=== PATIENT | male | born 1960 | race Asian ===

== ENCOUNTER 2023-03-05 12:11 | Outpatient (AMB) | payer OTHER, SELFPAY ==
[2023-03-05 12:33] VITALS: BP 126/80; PULSE 63; O2SAT 96; BMI 25.9
--- NOTE | 2023-03-05 12:33 | A.OFFPC_ITS ---
Vital Signs 03/05/23 12:33 Height 6 ft 1 in Weight 196 lb 6 oz BMI 25.9 BP 126/80 Blood Pressure Location Lt brachial Position Sitting Pulse 63 Pulse Source Pulse Oximeter Pulse Oximetry (%) 96 Oxygen Delivery Method Room Air Intake Visit Reasons: Annual Exam Manager Security Required: No Accompanied by: Self / Same As Patient Allergies Helene Allergy (Unknown, Uncoded 03/05/23 12:42) Itchy Eyes Medication List - Last Reconciled 03/05/23 by Jim Sweet MD albuterol sulfate 90 mcg/actuation (ProAir HFA) 2 puffs inhalation Q6H PRN 30 days cholecalciferol (vitamin D3) 50 mcg PO DAILY 90 days fluticasone propionate 50 mcg/actuation 2 sprays intranasal DAILY PRN 90 days triamcinolone acetonide 0.1% 1 appl topical BID PRN 30 days Tobacco use date assessed: 03/05/23 Dental Screening Dental Screen Date: 03/05/23 Did you have a dental visit in the last 12 months?: Yes Did you have a dental problem in the last 6 months where you did not have access to dental care?: No Was dental information given to patient?: Patient has dentist HPI Annual Exam HPI Details Patient comes in today for his annual physical examination States that he feels okay He denies any headaches or dizziness States that his recent symptoms of dysphagia and dyspnea have resolved - would like to know if his recent chest x-rays and upper GI series showed anything of importance Denies any chest pains No nausea/vomiting, no abdominal pain No change in bowel habits noted Denies any acute urinary symptoms States that he has been experiencing some recurrent right-sided low back pain lately although his symptoms have subsided a few days ago States that his sister advised him that she had similar symptoms recently and was prescribed some Baclofen, which helped her a lot He is wondering if he can get Rx for some Baclofen as well to take when his symptoms flare up again Adds that he is still breaking out in itchy rash/lesions on his lower legs and states that his current steroid cream helps but the rash keeps recurring often and is wondering if there is any Rx that would be more effective than the one he is currently on He had his screening colonoscopy done back on 05/07/[address] Forbes over at [facility] [place] - (+) tubular adenoma and was recommended to undergo repeat colonoscopy in 5 years States that he did have his repeat colonoscopy done back in May 2022 and was advised repeat again in 5 years As we have not received any report regarding his most recent colonoscopy, will try to obtain this from [facility] [place] [facility] for review Needs a few of his Rx refilled PFSH Medical History (Updated 03/05/23 @ 13:31 by Jim Sweet MD) Right rotator cuff tendinitis Reactive airway disease Dermatitis Pure hypercholesterolemia Vitamin D deficiency Hyperlipidemia Allergic rhinitis Surgical History (Updated 03/05/23 @ 13:24 by Jim Sweet MD) Hx of colonoscopy Family History Mother Arthritis Father No problems noted. Social History Housing: House Alcohol intake: current Alcohol intake frequency: holidays/special occasions only Alcohol type: beer and wine Patient Tobacco Use Status: Former Tobacco user e-Cigarette/Vaping Use: Never Used Second Hand Smoke Exposure: Yes service: No Current occupational status: employed Cognitive needs: No Hearing needs: No Vision needs: Yes Questionnaire PHQ-9 Over the last 2 weeks, how often have you been bothered by any of the following problems? 1. Little interest or pleasure in doing things: not at all 2. Feeling down, depressed, or hopeless: not at all 3. Trouble falling or staying asleep, or sleeping too much: not at all 4. Feeling tired or having little energy: not at all 5. Poor appetite or overeating: not at all 6. Feeling bad about yourself - or that you are a failure or have let yourself or your family down: not at all 7. Trouble concentrating on things, such as reading the newspaper or watching television: not at all 8. Moving or speaking so slowly that other people could have noticed. Or the opposite - being so fidgety or restless that you have been moving around a lot more than usual: not at all 9. Thoughts that you would be better off or of hurting yourself in some way: not at all Total score: 0 Depression Screening Interpretation: Negative Depression Screening Done: Yes 85167 - PHQ-9 Billing: Yes Source: Developed by Drs. Rubens Cain, Fariha Chávez, Rigoberto Lucia and colleagues, with an educational susanna from [employer]. Thrive Questionnaire Date Thrive assessed: 03/05/23 I am a: Patient What is your living situation today?: I have a steady place to live Within the past 12 months, did the food you bought not last and you didn't have the money to get more?: Never true Within the past 12 months, did you worry whether your food would run out before you got money to buy more?: Never true Do you have trouble paying for medicines?: No Do you have trouble getting transportation to medical appointments?: No Do you have trouble paying your heating and electricity bill?: No Do you have trouble taking care of your child, family member or friend?: No Do you have trouble with day-to-day activities such as bathing, preparing meals, shopping, managing finances, etc.?: No Are you currently unemployed and looking for a job?: No Are you interested in more education?: No Please select the resources that you would like help with: None Currently or been in a relationship where the following occur: no concerns reported AUDIT C Alcohol Use Questionnaire (AUDIT-C) 1. How often do you have a drink containing alcohol?: Monthly or less 2. How many drinks containing alcohol do you have on a typical day when you are drinking?: 1 or 2 3. How often do you have six or more drinks on one occasion?: Never Total Score: 1 Score Reviewed/Action Taken: Yes MILVIA-7 AMB Questionnaire MILVIA-7 Date MILVIA - 7 assessed: 03/05/23 Feeling nervous, anxious, or on edge: 0 = Not at all Not being able to stop or control worryin = Not at all Worrying too much about different things: 0 = Not at all Trouble relaxin = Not at all Being so restless that it is hard to sit still: 0 = Not at all Becoming easily annoyed or irritable: 0 = Not at all Feeling afraid as if something awful might happen: 0 = Not at all Total MILVIA-7 score (0-4 normal; 5-9 mild; 10-14 moderate; 15-21 severe): 0 Source: Developed by Fariha Jo, Rigoberto Lucia and colleagues, with an educational susanna from [employer]. Review of Systems Const Denies chills, Denies fatigue, Denies fever(s), Denies headache(s), Denies malaise and Denies weakness Eyes Denies blurry vision, Denies change in vision, Denies irritation and Denies itchy eyes ENT Denies dysphagia, Denies dizziness, Denies otalgia, Denies headache(s), Denies nasal congestion, Denies neck pain, Denies odynophagia and Denies sore throat Card Denies chest pain, Denies rapid heart rate, Denies irregular heart rhythm, Denies palpitations and Denies dyspnea (recent symptoms have resolved) Resp Denies chest congestion, Denies cough, Denies dyspnea (recent symptoms have re solved) and Denies wheezing GI Denies abdominal pain, Denies bloating, Denies constipation, Denies dysphagia, Reports heartburn (occasional - symptoms have resolved recently), Denies diarrhea, Denies nausea, Denies odynophagia and Denies vomiting Denies hematuria, Denies difficulty urinating, Denies dysuria, Denies nocturia, Denies urinary frequency and Denies urinary urgency Musc Reports back pain (on and off recently, over the right side), Denies arthralgias, Denies joint swelling, Denies muscle weakness and Denies neck pain Skin/Breast Denies change in pigmentation, Reports dry skin (especially over both lower legs), Denies lesions, Reports rash (recurrent itchy rash on both lower legs) and Denies unusual bruising Neuro Denies dizziness, Denies headache(s), Denies paresthesias and Denies weakness Endo Denies fatigue and Denies palpitations Aller/Immun Denies itchy eyes and Denies wheezing Physical exam (Primary Care) Vital Signs: Last Vital Signs Pulse 63 03/05/23 12:33 BP 126/80 03/05/23 12:33 Pulse Ox 96 03/05/23 12:33 Oxygen Delivery Method Room Air 03/05/23 12:33 BMI result Body Mass Index 25.9 Tobacco/Smoking Status: Tobacco use Status Tobacco use date assessed 03/05/23 03/05/23 12:39 Patient Tobacco Use Status Former Tobacco user 03/05/23 12:39 e-Cigarette/Vaping Use Never Used 03/05/23 12:39 PHQ-9: PHQ-9 Score PHQ-9: Total score 0 03/05/23 12:39 Depression Screening Interpretation: Negative Thrive Assessment: Date of Thrive Assessment Date Thrive assessed 03/05/23 03/05/23 12:39 Currently or been in a relationship where the following occur: no concerns reported Const General: no acute distress, alert and awake Orientation/consciousness: patient oriented x3 HENMT Head: Yes normocephalic and Yes atraumatic Ears: external ears normal, TM's normal bilaterally and EAC's normal General nose exam: No nasal discharge present Face and sinus: Yes normal facial exam and Yes sinuses nontender Teeth and gingiva: dentition normal Throat: Yes posterior oropharynx normal and Yes tonsils normal (no TP congesti on) Eyes Eyelids: Yes eyelids normal Conjunctivae: conjunctivae normal Pupils: Equal, round and reactive pupils present EOM: EOMs intact bilaterally Neck Neck: Yes no lymphadenopathy and Yes supple Thyroid: Thyroid normal Resp Auscultation: clear to auscultation bilaterally, no rales and no wheezes Cardio Rate: regular rate Rhythm: regular rhythm Heart sounds: no murmurs GI Palpation (GI): Soft to palpation, nontender and No hepatosplenomegaly present Auscultation: normal bowel sounds General: Yes no CVA tenderness Back/Spine/Pelvis Back: no CVA tenderness Cervical Spine: No Cervical spine tenderness Thoracic/Lumbar Spine: No lumbar spinal tenderness Skin Other: (+) scattered erythematous patchy rash/lesions on both lower legs General skin exam: dry skin (especially over both lower legs) Neuro General: patient oriented x3, moves all extremities, no focal motor deficits and CN's II-XI intact bilaterally Cranial nerves: Yes Equal, round and reactive pupils present Cognition (Neuro): normal cognition Gait exam (Neuro): Normal gait present Extrem General: Yes no clubbing, cyanosis or edema Assessment and Plan Assessment & Plan (1) Annual physical exam: Code(s): Z00.00 - Encounter for general adult medical examination without abnormal findings Plan: Check labs He is up-to-date with his colon cancer screening - was last done at [facility] [place] in May 2022 Will try to obtain copies of his recent colonoscopy report for review and documentation (2) Pure hypercholesterolemia: Code(s): E78.00 - Pure hypercholesterolemia, unspecified Plan: Reinforced low cholesterol diet Will recheck his fasting lipids ARELI for follow up (3) GERD without esophagitis: Code(s): K21.9 - Gastro-esophageal reflux disease without esophagitis Plan: Dietary restrictions reinforced; also reminded to avoid late night eating and eating too close to bedtime to minimize aggravating/triggering his symptoms He is advised that his upper GI series done at [facility] [place] a few weeks ago revealed (+) mild esophageal dysmotility and no evidence of hiatal hernia or GERD Will consider PPI Rx if his symptoms keep recurring often (4) Allergic rhinitis: Code(s): J30.9 - Allergic rhinitis, unspecified Qualifiers: Allergic rhinitis trigger: unspecified Allergic rhinitis seasonality: unspecified Qualified Code(s): J30.9 - Allergic rhinitis, unspecified Plan: Continue Fluticasone 50 mcg nasal spray QD PRN (5) Reactive airway disease: Code(s): J45.909 - Unspecified asthma, uncomplicated Qualifiers: Asthma severity: mild Asthma persistence: intermittent Asthma complication type: uncomplicated Qualified Code(s): J45.20 - Mild intermittent asthma, uncomplicated Plan: Most likely due to occupational exposure as 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) - although he states that his respiratory symptoms have not flared up much lately, probably because the weather is cooler now Continue Albuterol HFA 2 inhalations every 6 hours PRN - Rx refilled Chest x-rays done at [facility] [place] in December 2020 and more recently in December 2022 both came out normal Will consider sending patient for PFTs for further evaluation if his symptoms progress/persist (6) Right rotator cuff tendinitis: Code(s): M75.81 - Other shoulder lesions, right shoulder Plan: Still has on and off right shoulder pain - is most likely due to 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 Symptoms have improved with cortisone injection from orthopedics in the past and he can see orthopedics as needed (7) Acute lumbar myofascial strain: Code(s): S39.012A - Strain of muscle, fascia and tendon of lower back, initial encounter Qualifiers: Encounter type: sequela Qualified Code(s): S39.012S - Strain of muscle, fascia and tendon of lower back, sequela Plan: Advised that his symptoms are likely due to acute lumbar myofascial strain as 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 Per request, will provide with Rx for Baclofen 20 mg Q HS PRN - cautioned that this may cause drowsiness (8) Vitamin D deficiency: Code(s): E55.9 - Vitamin D deficiency, unspecified Plan: Will recheck Vitamin D level for follow up As patient works indoors all day long, he is advised to continue taking OTC Vitamin D3 2000 units QD (9) Dermatitis: Code(s): L30.9 - Dermatitis, unspecified Plan: Continue Triamcinolone 0.1% cream apply to rash BID PRN - Rx refilled Advised that his lower legs also appear to have very dry skin and his symptoms are likely a result of dry skin dermatitis Will start him as well on Lac Hydrin 12% lotion BID-TID PRN Plan To return in 1 year for his next annual physical examination Orders: Orders Lipid Panel Today E78.00 - Pure hypercholesterolemia, unspecified, Z00.00 - Encounter for general adult medical examination without abnormal findings Vitamin D 25-OH Total Today E55.9 - Vitamin D deficiency, unspecified, Z00.00 - Encounter for general adult medical examination without abnormal findings Complete Blood Count Auto Diff Today K21.9 - Gastro-esophageal reflux disease without esophagitis, Z00.00 - Encounter for general adult medical examination without abnormal findings Comprehensive [place]. Panel Fast Today K21.9 - Gastro-esophageal reflux disease without esophagitis, Z00.00 - Encounter for general adult medical examination without abnormal findings TSH reflex Free T4 Today Z00.00 - Encounter for general adult medical examination without abnormal findings UA CC w/rflx Micro + Cult Today R30.0 - Dysuria, Z00.00 - Encounter for general adult medical examination without abnormal findings Prostate Specific Antigen Today N40.0 - Benign prostatic hyperplasia without lower urinary tract symptoms, Z00.00 - Encounter for general adult medical examination without abnormal findings Medications: New baclofen 20 mg PO BEDTIME 90 days PRN 90 tabs 1RF right low back pain ammonium lactate 5% (Lac-Hydrin Five) 1 appl topical DAILY 226 grams 3RF dry skin Refilled fluticasone propionate 50 mcg/actuation administer into each nostril 2 sprays intranasal DAILY 90 days PRN 3 multiple units 1RF allergy symptoms J30.9 - Allergic rhinitis, unspecified triamcinolone acetonide 0.1% 1 appl topical BID 30 days PRN 60 mL 11RF rash and itching albuterol sulfate 90 mcg/actuation (ProAir HFA) 2 puffs inhalation Q6H 30 days PRN 18 grams 5RF shortness of breath or wheezing Coding Level of Care Code Est Pt Prev Care 40-64y(33672) Diagnoses Annual physical exam Z00.00 Pure hypercholesterolemia E78.00 GERD without esophagitis K21.9 Allergic rhinitis, unspecified seasonality, unspecified trigger J30.9 Allergic rhinitis trigger: unspecified Allergic rhinitis seasonality: unspecified Mild intermittent reactive airway disease without complication J45.20 Asthma severity: mild Asthma persistence: intermittent Asthma complication type: uncomplicated Right rotator cuff tendinitis M75.81 Acute myofascial strain of lumbar region, sequela S39.012S Encounter type: sequela Vitamin D deficiency E55.9 Dermatitis L30.9
== END 2023-03-05 13:17 | disposition home or self-care (01) ==
PROVIDERS: Visit Provider Internal Medicine
DX: Z00.00 Encounter for general adult medical examination without abnormal findings (principal); E78.00 Pure hypercholesterolemia, unspecified; K21.9 Gastro-esophageal reflux disease without esophagitis; J30.9 Allergic rhinitis, unspecified; J45.20 Mild intermittent asthma, uncomplicated; M75.81 Other shoulder lesions, right shoulder; S39.012S Strain of muscle, fascia and tendon of lower back, sequela; E55.9 Vitamin D deficiency, unspecified; L30.9 Dermatitis, unspecified
CPT/HCPCS: 99396

== ENCOUNTER 2024-03-10 12:08 | Outpatient (AMB) | payer OTHER, SELFPAY ==
--- NOTE | 2024-03-10 12:31 | A.OFFPC_ITS ---
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 Accompanied by: Self / Same As Patient Allergies Helene Allergy (Unknown, Uncoded 03/10/24 12:42) Itchy Eyes Medication List - Last Reconciled 03/10/24 by Jim Sweet MD albuterol sulfate 90 mcg/actuation (ProAir HFA) 2 puffs inhalation Q6H PRN 30 days ammonium lactate 5% (Lac-Hydrin Five) 1 appl topical DAILY baclofen 20 mg PO BEDTIME PRN 90 days cholecalciferol (vitamin D3) 50 mcg PO DAILY 90 days fluticasone propionate 50 mcg/actuation 2 sprays intranasal DAILY PRN 90 days mometasone 0.1% 1 appl topical DAILY PRN triamcinolone acetonide 0.1% 1 appl topical BID PRN 30 days Tobacco use date assessed: 03/10/24 Dental Screening Dental Screen Date: 03/10/24 Did you have a dental visit in the last 12 months?: Yes Did you have a dental problem in the last 6 months where you did not have access to dental care?: No Was dental information given to patient?: Patient has dentist HPI ANNUAL HPI Details Patient comes in today for his annual physical examination States that he feels okay He denies any headaches or dizziness Denies any chest pains, no SOB No nausea/vomiting, no abdominal pain No change in bowel habits noted He denies any acute urinary symptoms States that his has mentioned to him that she has recently noticed patient seemingly stop breathing briefly at times when he is sleeping at night - is wondering if 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 Forbes at [facility] and recalls being advised to get repeat colonoscopy again in 5 years (2027) He would also like to get his flu shot today COUNTS INCLUDE 234 BEDS AT THE [facility] Medical History (Updated 03/10/24 @ 15:08 by Jim Sweet MD) Mixed hyperlipidemia Right rotator cuff tendinitis Reactive airway disease Dermatitis Pure hypercholesterolemia Vitamin D deficiency Hyperlipidemia Allergic rhinitis Surgical History Hx of colonoscopy Family History Mother Arthritis Father No problems noted. Social History Housing: House Alcohol intake: current Alcohol intake frequency: holidays/special occasions only Alcohol type: beer and wine Patient Tobacco Use Status: Former Tobacco user e-Cigarette/Vaping Use: Never Used Second Hand Smoke Exposure: Yes service: No Current occupational status: employed Cognitive needs: No Hearing needs: No Vision needs: Yes Questionnaire PHQ-9 Over the last 2 weeks, how often have you been bothered by any of the following problems? 1. Little interest or pleasure in doing things: not at all 2. Feeling down, depressed, or hopeless: not at all 3. Trouble falling or staying asleep, or sleeping too much: not at all 4. Feeling tired or having little energy: several days 5. Poor appetite or overeating: not at all 6. Feeling bad about yourself - or that you are a failure or have let yourself or your family down: not at all 7. Trouble concentrating on things, such as reading the newspaper or watching television: not at all 8. Moving or speaking so slowly that other people could have noticed. Or the opposite - being so fidgety or restless that you have been moving around a lot more than usual: not at all 9. Thoughts that you would be better off or of hurting yourself in some way: not at all Total score: 1 Depression Screening Interpretation: Negative Depression Screening Done: Yes 00323 - PHQ-9 Billing: Yes Source: Developed by Drs. Rubens Cain, Fariha Chávez, Rigoberto Lucia and colleagues, with an educational susanna from [employer]. Thrive Questionnaire Date Thrive assessed: 03/10/24 I am a: Patient What is your living situation today?: I have a steady place to live Within the past 12 months, did the food you bought not last and you didn't have the money to get more?: Never true Within the past 12 months, did you worry whether your food would run out before you got money to buy more?: Never true Do you have trouble paying for medicines?: No Do you have trouble getting transportation to medical appointments?: No Do you have trouble paying your heating and electricity bill?: No Do you have trouble taking care of your child, family member or friend?: No Do you have trouble with day-to-day activities such as bathing, preparing meals, shopping, managing finances, etc.?: No Are you currently unemployed and looking for a job?: No Are you interested in more education?: No Please select the resources that you would like help with: None Currently or been in a relationship where the following occur: I choose not to answer THRIVE Score: 0 AUDIT C Alcohol Use Questionnaire (AUDIT-C) 1. How often do you have a drink containing alcohol?: 2-3 times a week 2. How many drinks containing alcohol do you have on a typical day when you are drinking?: 1 or 2 3. How often do you have six or more drinks on one occasion?: Never Total Score: 3 Score Reviewed/Action Taken: Yes MILVIA-7 AMB Questionnaire MILVIA-7 Date MILVIA - 7 assessed: 03/10/24 Feeling nervous, anxious, or on edge: 0 = Not at all Not being able to stop or control worryin = Not at all Worrying too much about different things: 1 = Several days Trouble relaxin = Not at all Being so restless that it is hard to sit still: 0 = Not at all Becoming easily annoyed or irritable: 0 = Not at all Feeling afraid as if something awful might happen: 0 = Not at all Total MILVIA-7 score (0-4 normal; 5-9 mild; 10-14 moderate; 15-21 severe): 1 Source: Developed by Drs. Rubens Cain, Fariha Chávez, Rigoberto Lucia and colleagues, with an educational susanna from [employer]. Review of Systems Const Denies chills, Denies daytime sleepiness, Reports fatigue (at times), Denies fever(s), Denies headache(s), Denies malaise, Reports stops breathing during sleep (sometimes, per his ) and Denies weakness Eyes Reports blurry vision (on and off, often in the morning), Denies change in vision, Denies irritation and Denies itchy eyes ENT Denies dysphagia, Denies dizziness, Denies otalgia, Denies headache(s), Denies nasal congestion, Denies neck pain, Denies odynophagia and Denies sore throat Card Denies chest pain, Denies rapid heart rate, Denies irregular heart rhythm, Denies palpitations and Denies dyspnea Resp Denies chest congestion, Denies cough, Denies dyspnea and Denies wheezing GI Denies abdominal pain, Denies bloating, Denies constipation, Denies dysphagia, Denies heartburn, Denies diarrhea, Denies nausea, Denies odynophagia and Denies vomiting Denies hematuria, Denies difficulty urinating, Denies dysuria, Denies urinary frequency and Denies urinary urgency Musc Reports back pain (on and off, mostly on the right side), Denies arthralgias, Denies joint swelling, Reports muscle cramps (on and off in the left leg, often at night), Denies muscle weakness and Denies neck pain Skin/Breast Denies change in pigmentation, Reports dry skin, Denies lesions, Reports rash (recurrent, on the lower extremities) and Denies unusual bruising Neuro Denies dizziness, Denies headache(s), Denies paresthesias and Denies weakness Endo Reports fatigue (at times) and Denies palpitations Aller/Immun Denies itchy eyes and Denies wheezing Physical exam (Primary Care) Vital Signs: Last Vital Signs Pulse 66 03/10/24 12:32 BP 120/78 03/10/24 12:32 Pulse Ox 95 03/10/24 12:32 Oxygen Delivery Method Room Air 03/10/24 12:32 BMI result Body Mass Index 25.4 Tobacco/Smoking Status: Tobacco use Status Tobacco use date assessed 03/10/24 03/10/24 12:37 Patient Tobacco Use Status Former Tobacco user 03/10/24 12:37 e-Cigarette/Vaping Use Never Used 03/10/24 12:37 PHQ-9: PHQ-9 Score PHQ-9: Total score 1 03/10/24 12:56 Depression Screening Interpretation: Negative Thrive Assessment: Date of Thrive Assessment Date Thrive assessed 03/10/24 03/10/24 12:37 Currently or been in a relationship where the following occur: I choose not to answer Const General: no acute distress, alert and awake Orientation/consciousness: patient oriented x3 HENMT Head: Yes normocephalic and Yes atraumatic Ears: external ears normal, TM's normal bilaterally and EAC's normal General nose exam: No nasal discharge present Face and sinus: Yes normal facial exam and Yes sinuses nontender Teeth and gingiva: dentition normal Throat: Yes posterior oropharynx normal and Yes tonsils normal (no TP congestion) Eyes Eyelids: Yes eyelids normal Conjunctivae: conjunctivae normal Pupils: Equal, round and reactive pupils present EOM: EOMs intact bilaterally Neck Neck: Yes no lymphadenopathy and Yes supple Thyroid: Thyroid normal Resp Auscultation: clear to auscultation bilaterally, no rales and no wheezes Cardio Rate: regular rate Rhythm: regular rhythm Heart sounds: no murmurs GI Palpation (GI): Soft to palpation, nontender and No hepatosplenomegaly present Auscultation: normal bowel sounds General: Yes no CVA tenderness Back/Spine/Pelvis Back: no CVA tenderness Cervical Spine: No Cervical spine tenderness Thoracic/Lumbar Spine: thoracic and lumbar spine normal to inspection Skin Other: (+) few scattered erythematous patchy rash/lesions on both lower legs General skin exam: dry skin (especially over both lower legs) Lesions: no lesions Rashes: no rashes Neuro General: patient oriented x3, moves all extremities, no focal motor deficits and CN's II-XI intact bilaterally Cranial nerves: Yes Equal, round and reactive pupils present Cognition (Neuro): normal cognition Gait exam (Neuro): Normal gait present Extrem General: Yes no clubbing, cyanosis or edema Office Procedures Flu Questionnaire Does the patient have a severe egg allergy?: No Does the patient have severe life threatening allergies?: No Does the patient have a fever or illness today?: No Has the patient ever had Guillain-[place] Syndrome?: No Has the patient ever had any past reaction to a flu shot?: No Immunizations Fluarix Triv [id number] (PF) 45 mcg (15 mcg x 3)/0.5 mL IM syringe Performing Provider: Jim Sweet MD Performing Location: [facility] Administered by: SAMIA Guzmán on 03/10/24 13:10 Dose Route Admin Location Dispensed Lot Number Expiration Date NDC Hydro Pneumatic Tester 0.5 mL IM Right Deltoid 0.5 mL [id number] 09/29/24 [id number] VIS Given Date VIS Provided VIS Publication Date 03/10/24 Single Vaccine 20 Eligibility Eligibility Date Funding Source Not [facility] Eligible 03/10/24 Private Coding Level of Care Code Est Pt Prev Care 40-64y(99259) Diagnoses Annual physical exam Z00.00 Blurred vision, bilateral H53.8 Mixed hyperlipidemia E78.2 GERD without esophagitis K21.9 Allergic rhinitis, unspecified seasonality, unspecified trigger J30.9 Allergic rhinitis trigger: unspecified Allergic rhinitis seasonality: unspecified Mild intermittent reactive airway disease without complication J45.20 Asthma severity: mild Asthma persistence: intermittent Asthma complication type: uncomplicated Vitamin D deficiency E55.9 Dermatitis L30.9 Leg cramps R25.2 Witnessed apneic spells R06.81 Additional Codes PHQ-9 - 24983 - PHQ-9 Billing: Yes ([id number]) Assessment & Plan Assessment & Plan (1) Annual physical exam: Code(s): Z00.00 - Encounter for general adult medical examination without abnormal findings Category: Medical Plan: Check labs He is up-to-date with his colon cancer screening - had his colonoscopy last done with Dr. Forbes at [facility] last year in May 2022 and recalls being advised that his next colonoscopy should be in 5 years (2027) (2) Blurred vision, bilateral: Code(s): H53.8 - Other visual disturbances Category: Medical Plan: Will refer him to ophthalmology for further evaluation and management (3) Mixed hyperlipidemia: Code(s): E78.2 - Mixed hyperlipidemia Category: Medical Plan: Have cautioned patient that his cholesterol levels were elevated on his labs done last year, with his total cholesterol at 276 mg/dl, serum TG at 263 mg/dl and LDL cholesterol level at 174 mg/dl Reinforced low cholesterol diet - advised that we may need to consider starting him on cholesterol-lowering medications if he cannot get his numbers down with diet modification alone Will have him recheck his labs and fasting lipids ARELI for follow up (4) GERD without esophagitis: Code(s): K21.9 - Gastro-esophageal reflux disease without esophagitis Category: Medical Plan: Dietary restrictions reinforced He is reminded that late night eating and eating too close to bedtime can aggravate/trigger his symptoms His upper GI series done at [facility] last year revealed (+) mild esophageal dysmot ility and no evidence of hiatal hernia or GERD Will consider PPI Rx if his symptoms keep recurring often or if they get worse (5) Allergic rhinitis: Code(s): J30.9 - Allergic rhinitis, unspecified Category: Medical Qualifiers: Allergic rhinitis trigger: unspecified Allergic rhinitis seasonality: unspecified Qualified Code(s): J30.9 - Allergic rhinitis, unspecified Plan: Continue Fluticasone 50 mcg nasal spray QD PRN (6) Reactive airway disease: Code(s): J45.909 - Unspecified asthma, uncomplicated Category: Medical Qualifiers: Asthma severity: mild Asthma persistence: intermittent Asthma complication type: uncomplicated Qualified Code(s): J45.20 - Mild intermittent asthma, uncomplicated Plan: This is most likely due to occupational exposure as 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 day Continue Albuterol HFA 2 inhalations every 6 hours PRN Chest x-rays done at [facility] in December 2020 and more recently in December 2022 both came out normal Will consider sending patient for PFTs for further evaluation if his symptoms progress/persist (7) Vitamin D deficiency: Code(s): E55.9 - Vitamin D deficiency, unspecified Category: Medical Plan: Continue OTC Vitamin D3 2000 units QD Will have him recheck his Vitamin D level for follow up (8) Dermatitis: Code(s): L30.9 - Dermatitis, unspecified Category: Medical Plan: Continue Triamcinolone 0.1% cream apply to rash BID PRN and Lac Hydrin 12% lotion BID-TID PRN for dry skin (9) Leg cramps: Code(s): R25.2 - Cramp and spasm Category: Medical Plan: Continue Baclofen 20 mg Q HS PRN He is advised that his recurrent leg cramps at night may also be tied in to fatigue as he is on his feet at work all day (10) Witnessed apneic spells: Code(s): R06.81 - Apnea, not elsewhere classified Category: Medical Plan: He is advised that this may be likely just due to increased fatigue from working all day as apneic spells in sleep apnea often tends to recur daily/regularly He is instructed to verify this with his and if his tells him that he is experiencing apneic spells on a daily basis now, then he can check back with us and I can consider having him do at least a home sleep study to help assess him for possible PORSCHE Plan As requested, flu vaccine given to patient today To return in 1 year for his next annual physical examination Orders: Orders Complete Blood Count Auto Diff Today D64.9 - Anemia, unspecified, Z00.00 - Encounter for general adult medical examination without abnormal findings Lipid Panel Today E78.00 - Pure hypercholesterolemia, unspecified, Z00.00 - Encounter for general adult medical examination without abnormal findings UA CC w/rflx Micro + Cult Today R30.0 - Dysuria, Z00.00 - Encounter for general adult medical examination without abnormal findings Hemoglobin A1c Today R73.9 - Hyperglycemia, unspecified, Z00.00 - Encounter for general adult medical examination without abnormal findings Comprehensive [place]. Panel Fast Today E78.00 - Pure hypercholesterolemia, unspecified, Z00.00 - Encounter for general adult medical examination without abnormal findings TSH reflex Free T4 Today E78.00 - Pure hypercholesterolemia, unspecified, Z00.00 - Encounter for general adult medical examination without abnormal findings Vitamin D 25-OH Total Today E55.9 - Vitamin D deficiency, unspecified, Z00.00 - Encounter for general adult medical examination without abnormal findings Prostate Specific Antigen Today N40.0 - Benign prostatic hyperplasia without lower urinary tract symptoms, Z00.00 - Encounter for general adult medical examination without abnormal findings Influenza [id number] Immunization Today Z23 - Encounter for immunization Referrals Ophthalmology Referral H53.8 - Other visual disturbances Medications: Refilled baclofen 20 mg PO BEDTIME 90 days PRN 90 tabs 1RF right low back pain ammonium lactate 5% (Lac-Hydrin Five) 1 appl topical DAILY 226 grams 3RF dry skin triamcinolone acetonide 0.1% 1 appl topical BID 30 days PRN 60 mL 11RF rash and itching
[2024-03-10 12:32] VITALS: BP 120/78; PULSE 66; O2SAT 95; BMI 25.4
== END 2024-03-10 13:11 | disposition home or self-care (01) ==
PROVIDERS: PCP Internal Medicine; Visit Provider Internal Medicine
DX: Z00.00 Encounter for general adult medical examination without abnormal findings (principal); H53.8 Other visual disturbances; E78.2 Mixed hyperlipidemia; K21.9 Gastro-esophageal reflux disease without esophagitis; J30.9 Allergic rhinitis, unspecified; J45.20 Mild intermittent asthma, uncomplicated; E55.9 Vitamin D deficiency, unspecified; L30.9 Dermatitis, unspecified; R25.2 Cramp and spasm; R06.81 Apnea, not elsewhere classified; Z23 Encounter for immunization

== ENCOUNTER → 2024-03-10 12:08 | Outpatient (BNVA) | payer OTHER, SELFPAY | PROVIDERS: PCP Internal Medicine; Visit Provider Internal Medicine | DX: Z00.00 Encounter for general adult medical examination without abnormal findings (principal); Z23 Encounter for immunization; H53.8 Other visual disturbances; E78.2 Mixed hyperlipidemia; K21.9 Gastro-esophageal reflux disease without esophagitis; J30.9 Allergic rhinitis, unspecified; J45.20 Mild intermittent asthma, uncomplicated; E55.9 Vitamin D deficiency, unspecified; L30.9 Dermatitis, unspecified; R25.2 Cramp and spasm; R06.81 Apnea, not elsewhere classified | CPT/HCPCS: 90471; 90656; 96127; 99396 ==

== ENCOUNTER 2025-03-16 12:38 | Outpatient (AMB) | payer OTHER, SELFPAY ==
--- NOTE | 2025-03-16 12:42 | A.OFFPC_ITS ---
Vital Signs 03/16/25 12:44 Height 6 ft 1 in Weight 192 lb 8 oz BMI 25.4 BP 132/70 Blood Pressure Location Lt brachial Position Sitting Pulse 59 Pulse Source Pulse Oximeter Temp 97.1 F Temp Source Temporal Artery Scan Pulse Oximetry (%) 97 Oxygen Delivery Method Room Air Intake Visit Reasons: Annual exam Intake Note: Patient is here today for a physical. Insurance Healthcare Representative Required: No Executive Recruiter: Not Required per policy Accompanied by: Self / Same As Patient Allergies Helene Allergy (Unknown, Uncoded 03/16/25 12:56) Itchy Eyes Medication List - Last Reconciled 03/16/25 by Jim Sweet MD albuterol sulfate 90 mcg/actuation 2 puffs inhalation Q6H PRN 30 days ammonium lactate 5% (Lac-Hydrin Five) 1 appl topical DAILY baclofen 20 mg PO BEDTIME PRN 90 days cholecalciferol (vitamin D3) 50 mcg PO DAILY 90 days fluticasone propionate 50 mcg/actuation 2 sprays intranasal DAILY PRN 90 days mometasone 0.1% 1 appl topical DAILY PRN triamcinolone acetonide 0.1% 1 appl topical BID PRN 30 days Tobacco use date assessed: 03/16/25 Dental Screening Dental Screen Date: 03/16/25 Did you have a dental visit in the last 12 months?: No Did you have a dental problem in the last 6 months where you did not have access to dental care?: No Was dental information given to patient?: No HPI Annual exam HPI Details Patient comes in today for his annual physical examination States that he feels okay He denies any headaches or dizziness Denies any chest pains, no shortness of breath No nausea/vomiting, no abdominal pain No change in bowel habits noted He denies any acute urinary symptoms States that he still has on and off right shoulder pain but they have been mostly manageable Relates that his shoulder pain improved significantly with cortisone injections that he receives from Orthopedics in the past, with the last time about 2 years ago He has also been experiencing recurrent itching over both lower legs, and this is slightly worse on the right leg He appears to have a lot of scratch salmon and superficial abrasions on his right leg from frequent scratching He had his colonoscopy last done a couple of years ago in 2022 and was advised that his next colonoscopy will be in 7 years (2029) Needs a couple of his Rx refilled He would also like to get his flu shot today PFSH Medical History Mixed hyperlipidemia Right rotator cuff tendinitis Reactive airway disease Dermatitis Pure hypercholesterolemia Vitamin D deficiency Hyperlipidemia Allergic rhinitis Surgical History (Updated 03/16/25 @ 12:59 by Jim Sweet MD) Hx of colonoscopy Family History Mother Arthritis Father No problems noted. Social History Housing: House Alcohol intake: current Alcohol intake frequency: holidays/special occasions only Alcohol type: beer and wine Patient Tobacco Use Status: Former Tobacco user e-Cigarette/Vaping Use: Never Used Second Hand Smoke Exposure: Yes service: No Current occupational status: employed Cognitive needs: No Hearing needs: No Vision needs: Yes Questionnaire PHQ-9 Over the last 2 weeks, how often have you been bothered by any of the following problems? 1. Little interest or pleasure in doing things: not at all 2. Feeling down, depressed, or hopeless: not at all 3. Trouble falling or staying asleep, or sleeping too much: not at all 4. Feeling tired or having little energy: several days 5. Poor appetite or overeating: not at all 6. Feeling bad about yourself - or that you are a failure or have let yourself or your family down: not at all 7. Trouble concentrating on things, such as reading the newspaper or watching television: not at all 8. Moving or speaking so slowly that other people could have noticed. Or the opposite - being so fidgety or restless that you have been moving around a lot more than usual: not at all 9. Thoughts that you would be better off or of hurting yourself in some way: not at all Total score: 1 Depression Screening Interpretation: Negative Depression Screening Done: Yes 02128 - PHQ-9 Billing: Yes Source: Developed by Drs. Rubens Cain, Fariha Chávez, Rigoberto Lucia and colleagues, with an educational susanna from [employer]. Thrive Questionnaire Date Thrive assessed: 03/16/25 I am a: Patient What is your living situation today?: I have a steady place to live Within the past 12 months, did the food you bought not last and you didn't have the money to get more?: Never true Within the past 12 months, did you worry whether your food would run out before you got money to buy more?: Never true Do you have trouble paying for medicines?: No Do you have trouble getting transportation to medical appointments?: No Do you have trouble paying your heating and electricity bill?: No Do you have trouble taking care of your child, family member or friend?: No Do you have trouble with day-to-day activities such as bathing, preparing meals, shopping, managing finances, etc.?: No Are you currently unemployed and looking for a job?: No Are you interested in more education?: No Please select the resources that you would like help with: None Currently or been in a relationship where the following occur: I choose not to answer THRIVE Score: 0 AUDIT C Alcohol Use Questionnaire (AUDIT-C) 1. How often do you have a drink containing alcohol?: 4 or more times a week 2. How many drinks containing alcohol do you have on a typical day when you are drinking?: 1 or 2 3. How often do you have six or more drinks on one occasion?: Never Total Score: 4 Score Reviewed/Action Taken: Yes MILVIA-7 AMB Questionnaire MILVIA-7 Date MILVIA - 7 assessed: 03/10/24 Feeling nervous, anxious, or on edge: 0 = Not at all Not being able to stop or control worryin = Not at all Worrying too much about different things: 0 = Not at all Trouble relaxin = Not at all Being so restless that it is hard to sit still: 0 = Not at all Becoming easily annoyed or irritable: 0 = Not at all Feeling afraid as if something awful might happen: 0 = Not at all Total MILVIA-7 score (0-4 normal; 5-9 mild; 10-14 moderate; 15-21 severe): 0 Source: Developed by Drs. Rubens Cain, Fariha Chávez, Rigoberto Lucia and colleagues, with an educational susanna from [employer]. Review of Systems Const Denies chills, Denies fatigue, Denies fever(s), Denies headache(s), Denies mal aise and Denies weakness Eyes Denies blurry vision, Denies change in vision, Denies irritation and Denies itchy eyes ENT Denies dysphagia, Denies dizziness, Denies otalgia, Denies headache(s), Denies nasal congestion, Denies neck pain, Denies odynophagia and Denies sore throat Card Denies rapid heart rate, Denies irregular heart rhythm, Denies palpitations and Denies dyspnea Resp Denies chest congestion, Denies cough, Denies dyspnea and Denies wheezing GI Denies abdominal pain, Denies bloating, Denies constipation, Denies dysphagia, Denies heartburn, Denies diarrhea, Denies nausea, Denies odynophagia and Denies vomiting Denies hematuria, Denies difficulty urinating, Denies dysuria, Denies urinary frequency and Denies urinary urgency Musc Denies back pain, Reports arthralgias (on and off in the right shoulder), Denies joint swelling, Denies muscle weakness and Denies neck pain Skin/Breast Denies change in pigmentation, Reports dry skin (especially over both lower legs), Denies lesions, Denies rash and Denies unusual bruising Neuro Denies dizziness, Denies headache(s), Denies paresthesias and Denies weakness Endo Denies fatigue and Denies palpitations Aller/Immun Denies itchy eyes and Denies wheezing Physical exam (Primary Care) Vital Signs: Last Vital Signs Temp 97.1 F 03/16/25 12:44 Pulse 59 03/16/25 12:44 BP 132/70 03/16/25 12:44 Pulse Ox 97 03/16/25 12:44 Oxygen Delivery Method Room Air 03/16/25 12:44 BMI result Body Mass Index 25.4 Tobacco/Smoking Status: Tobacco use Status Tobacco use date assessed 03/16/25 03/16/25 12:50 Patient Tobacco Use Status Former Tobacco user 03/16/25 12:50 e-Cigarette/Vaping Use Never Used 03/16/25 12:50 PHQ-9: PHQ-9 Score PHQ-9: Total score 1 03/16/25 23:47 Depression Screening Interpretation: Negative Thrive Assessment: Date of Thrive Assessment Date Thrive assessed 03/16/25 03/16/25 12:50 Currently or been in a relationship where the following occur: I choose not to answer Const General: no acute distress, alert and awake Orientation/consciousness: patient oriented x3 HENMT Head: Yes normocephalic and Yes atraumatic Ears: external ears normal, TM's normal bilaterally and EAC's normal General nose exam: No nasal discharge present Face and sinus: Yes normal facial exam and Yes sinuses nontender Teeth and gingiva: dentition normal Throat: Yes posterior oropharynx normal and Yes tonsils normal (no TP congestion) Eyes Eyelids: Yes eyelids normal Conjunctivae: conjunctivae normal Pupils: Equal, round and reactive pupils present EOM: EOMs intact bilaterally Neck Neck: Yes supple and No lymphadenopathy Thyroid: Thyroid normal Resp Auscultation: clear to auscultation bilaterally, no rales and no wheezes Cardio Rate: regular rate Rhythm: regular rhythm Heart sounds: no murmurs GI Palpation (GI): Soft to palpation, nontender and No hepatosplenomegaly present Auscultation: normal bowel sounds General: Yes no CVA tenderness Back/Spine/Pelvis Back: no CVA tenderness Cervical Spine: No Cervical spine tenderness Thoracic/Lumbar Spine: No lumbar spinal tenderness Skin Other: (+) dry skin with scattered superficial abrasions and some scaling noted over both lower legs Neuro General: patient oriented x3, moves all extremities, no focal motor deficits and CN's II-XI intact bilaterally Cranial nerves: Yes Equal, round and reactive pupils present Cognition (Neuro): normal cognition Gait exam (Neuro): Normal gait present Extrem General: Yes no clubbing, cyanosis or edema Office Procedures Flu Questionnaire Does the patient have a severe egg allergy?: No Does the patient have severe life threatening allergies?: No Does the patient have a fever or illness today?: No Has the patient ever had Guillain-[place] Syndrome?: No Has the patient ever had any past reaction to a flu shot?: No Immunizations Fluarix [id number] (PF) 45 mcg (15 mcg x 3)/0.5 mL IM syringe Performing Provider: Jim Sweet MD [facility] Administered by: BREEZY Warner on 03/16/25 13:30 Dose Route Admin Location Dispensed Lot Number Expiration Date [facility] [place] Hearing Screener 0.5 mL IM Right Deltoid 0.5 mL [id number] 09/29/25 [id number] [employer] VIS Given Date VIS Provided VIS Publication Date 03/16/25 Single Vaccine 24 Eligibility Eligibility Date Funding Source Not [facility] Eligible 03/16/25 Private Coding Level of Care Code Est Pt Prev Care 40-64y(71468) Diagnoses Annual physical exam Z00.00 Mixed hyperlipidemia E78.2 GERD without esophagitis K21.9 Allergic rhinitis, unspecified seasonality, unspecified trigger J30.9 Allergic rhinitis trigger: unspecified Allergic rhinitis seasonality: unspecified Mild intermittent reactive airway disease without complication J45.20 Asthma severity: mild Asthma persistence: intermittent Asthma complication type: uncomplicated Vitamin D deficiency E55.9 Dermatitis L30.9 Leg cramps R25.2 Additional Codes PHQ-9 - 18792 - PHQ-9 Billing: Yes ([id number]) Assessment & Plan Assessment & Plan (1) Annual physical exam: Code(s): Z00.00 - Encounter for general adult medical examination without abnormal findings Category: Medical Plan: Check labs ARELI to complete his annual examination He is up-to-date with his colon cancer screening and will be due for repeat colonoscopy in 2030 (2) Mixed hyperlipidemia: Code(s): E78.2 - Mixed hyperlipidemia Category: Medical Plan: Have cautioned patient that his cholesterol levels were elevated on his labs done last year, with his total cholesterol at 245 mg/dl, serum TG at 121 mg/dl and LDL cholesterol level at 167 mg/dl Reinforced low cholesterol diet - advised that we may need to consider starting him on cholesterol-lowering medications if he cannot get his numbers down with diet modification alone Will have him recheck his labs and fasting lipids ARELI for follow up (3) GERD without esophagitis: Code(s): K21.9 - Gastro-esophageal reflux disease without esophagitis Category: Medical Plan: Dietary restrictions reinforced He is reminded that late night eating and eating too close to bedtime can aggravate/trigger his symptoms His upper GI series done at [facility] last year revealed (+) mild esophageal dysmotility and no evidence of hiatal hernia or GERD Will consider PPI Rx if his symptoms keep recurring often or if they get worse (4) Allergic rhinitis: Code(s): J30.9 - Allergic rhinitis, unspecified Category: Medical Qualifiers: Allergic rhinitis trigger: unspecified Allergic rhinitis seasonality: unspecified Qualified Code(s): J30.9 - Allergic rhinitis, unspecified Plan: Continue Fluticasone 50 mcg nasal spray QD PRN - Rx refilled (5) Reactive airway disease: Code(s): J45.909 - Unspecified asthma, uncomplicated Category: Medical Qualifiers: Asthma severity: mild Asthma persistence: intermittent Asthma complication type: uncomplicated Qualified Code(s): J45.20 - Mild intermittent asthma, uncomplicated Plan: This is most likely due to occupational exposure as 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 Continue Albuterol HFA 2 inhalations every 6 hours PRN - Rx refilled Chest x-rays done at [facility] in December 2020 and more recently in December 2022 both came out normal Will consider sending patient for PFTs for further evaluation if his symptoms progress/persist (6) Vitamin D deficiency: Code(s): E55.9 - Vitamin D deficiency, unspecified Category: Medical Plan: Continue OTC Vitamin D3 2000 units QD Will have him recheck his Vitamin D level for follow up (7) Dermatitis: Code(s): L30.9 - Dermatitis, unspecified Category: Medical Plan: Continue Triamcinolone 0.1% cream apply to rash BID PRN Will start him back on Lac Hydrin 12% lotion BID-TID PRN for dry skin, especially on his lower legs (8) Leg cramps: Code(s): R25.2 - Cramp and spasm Category: Medical Plan: Continue Baclofen 20 mg Q HS PRN He has been advised that his recurrent leg cramps at night may also be due to muscle fatigue as he is on his feet at work all day Plan As requested, flu vaccine given to patient today To return in 1 year for his next annual physical examination Orders: Orders TSH reflex Free T4 03/16/25 E78.00 - Pure hypercholesterolemia, unspecified, Z00.00 - Encounter for general adult medical examination without abnormal findings Vitamin D 25-OH Total 03/16/25 E55.9 - Vitamin D deficiency, unspecified, Z00.00 - Encounter for general adult medical examination without abnormal findings Prostate Specific Antigen 03/16/25 N40.0 - Benign prostatic hyperplasia without lower urinary tract symptoms, Z00.00 - Encounter for general adult medical examination without abnormal findings Complete Blood Count Auto Diff 03/16/25 D64.9 - Anemia, unspecified, Z00.00 - Encounter for general adult medical examination without abnormal findings Comprehensive [place]. Panel Fast 03/16/25 E78.00 - Pure hypercholesterolemia, unspecified, Z00.00 - Encounter for general adult medical examination without abnormal findings Lipid Panel 03/16/25 E78.00 - Pure hypercholesterolemia, unspecified, Z00.00 - Encounter for general adult medical examination without abnormal findings UA CC w/rflx Micro + Cult 03/16/25 R30.0 - Dysuria, Z00.00 - Encounter for general adult medical examination without abnormal findings Influenza [id number] Immunization 03/16/25 Z23 - Encounter for immunization Medications: New ammonium lactate 12% 1 appl topical BID-TID PRN 400 grams 5RF dry skin Refilled albuterol sulfate 90 mcg/actuation 2 puffs inhalation Q6H PRN 18 grams 5RF shortness of breath or wheezing 30 days fluticasone propionate 50 mcg/actuation administer into each nostril 2 sprays intranasal DAILY PRN 3 multiple units 1RF allergy symptoms 90 days J30.9 - Allergic rhinitis, unspecified Discontinued ammonium lactate 5% (Lac-Hydrin Five) Discontinued Reason: Doctor's Order 1 appl topical DAILY 226 grams 3RF dry skin
[2025-03-16 12:44] VITALS: BP 132/70; PULSE 59; TEMP 36.2; O2SAT 97; BMI 25.4
== END 2025-03-16 13:29 | disposition home or self-care (01) ==
LOC: HO.HMCH 12:39
PROVIDERS: PCP Internal Medicine; Visit Provider Internal Medicine
DX: Z00.00 Encounter for general adult medical examination without abnormal findings (principal); E78.2 Mixed hyperlipidemia; K21.9 Gastro-esophageal reflux disease without esophagitis; J30.9 Allergic rhinitis, unspecified; J45.20 Mild intermittent asthma, uncomplicated; E55.9 Vitamin D deficiency, unspecified; L30.9 Dermatitis, unspecified; R25.2 Cramp and spasm

== ENCOUNTER → 2025-03-16 12:38 | Outpatient (BNVA) | payer OTHER, SELFPAY | PROVIDERS: PCP Internal Medicine; Visit Provider Internal Medicine | DX: Z00.00 Encounter for general adult medical examination without abnormal findings (principal); Z23 Encounter for immunization; E78.2 Mixed hyperlipidemia; K21.9 Gastro-esophageal reflux disease without esophagitis; J30.9 Allergic rhinitis, unspecified; J45.20 Mild intermittent asthma, uncomplicated; E55.9 Vitamin D deficiency, unspecified; L30.9 Dermatitis, unspecified; R25.2 Cramp and spasm | CPT/HCPCS: 90471; 90656; 96127; 99396 ==